=== PATIENT | female | born 1990 | race African-American/Black ===

== ENCOUNTER 2020-04-12 19:45 | Emergency (ER) | payer OTHER ==
[~2020-04-12] VITALS: Ht 162.6 cm; Wt 61.2 kg
--- NOTE | 2020-04-12 19:55 | NUR ---
MD DILL in room to see patient.
[2020-04-12] MEDS ORDERED: HYDROCODONE/APAP 10-325 MG TABLET PO ONE (20:00)
[2020-04-12] MEDS ORDERED: ONDANSETRON ODT 4 MG TAB.RAPDIS SL ONE (20:00)
[2020-04-12] MEDS ORDERED: HYDROCODONE/APAP 10-325 MG TABLET ONE (20:14)
[2020-04-12] MEDS ORDERED: ONDANSETRON ODT 4 MG TAB.RAPDIS ONE (20:15)
--- NOTE | 2020-04-12 20:20 | NUR ---
Patient is lying in bed, does not appear to be in distress. States her headache feels better while resting.
--- NOTE | 2020-04-12 20:48 | NUR ---
[employer]CHIT[employer] DEVELOPER JESSE called stating patient is COVID -
[2020-04-12 21:04] VITALS: BP 117/84
--- NOTE | 2020-04-12 21:04 | NUR ---
Patient discharged to home in stable condition. Written and verbal after care instructions given. Patient verbalizes understanding of instructions. Stressed follow up or return to ER for worsening s/s. Patient ambulates without difficulty, left with belongings, instructed to not drive.
== END 2020-04-12 21:04 | disposition home or self-care (01) ==
LOC: ER 19:50
DX: G43.909 Migraine, unspecified, not intractable, without status migrainosus (principal); Z20.822 Contact with and (suspected) exposure to COVID-19; Z91.040 Latex allergy status
CPT/HCPCS: 87426; 99283; U0003; A4663; Q0162